=== PATIENT | male | born 1940 | race Caucasian/White ===

== ENCOUNTER → 2018-04-12 | Outpatient (CLI) | payer OTHER ==
[~2018-04-12] MED LIST: REGADENOSON 0.4 MG/5 ML SYRINGE IV ONE
--- NOTE | 2018-04-12 10:58 | EST ---
EXERCISE STRESS DATE OF SERVICE: 04/12/2018 AGE: 77 SEX: Male HT: 70" WT: 174 pounds PROTOCOL: Lexiscan Cardiolite STAGE: DURATION OF EXERCISE: HEART RATE REST: 72 BLOOD PRESSURE REST: 166/84 MAXIMUM HEART RATE ACHIEVED: 91 MAXIMUM BLOOD PRESSURE: 166/84 85% MPHR: 120 100% MPHR: 141 METS: INDICATIONS: Abnormal EKG CLINICAL INFORMATION: History of hypertension, dyslipidemia, and abnormal ECG. Baseline heart rate is 72 beats per minute. Baseline blood pressure 166/84 mmHg. Baseline 12-lead ECG shows sinus rhythm with normal AK, left anterior fascicular block and normal ST segments. Patient received Lexiscan infusion per protocol. There was no significant change in heart rate or blood pressure. No chest pain noted. No ECG abnormalities noted. No arrhythmias noted. Nuclear portion of the stress test will be reported separately. MMODL / IJN: [id number] /
--- NOTE | 2018-04-12 11:36 | NM ---
EXAMINATION TYPE: NM stress lexiscan cardiolite DATE OF EXAM: 04/12/2018 COMPARISON: NONE HISTORY: Abnormal EKG TECHNIQUE: After the intravenous administration of 9.84 mCi Tc 99m Sestamibi - Cardiolite resting SP ECT images acquired 45 minutes post injection. The patient received 0.4mg Lexiscan, 26.3 mCi Tc 99m Sestamibi - Stress images obtained [address] injection FINDINGS: Review of stress and rest SPECT images demonstrates decreased uptake along the inferior left ventricu lar wall on stress and rest images extending towards the apex, decreased uptake is noted inferolatera lly and inferoseptally on stress as compared to rest images. Gated analysis shows normal wall motion with an estimated left ventricular ejection fraction of 60 %. 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
== END ==
LOC: RADNMMAIN 07:40
DX: I44.4 Left anterior fascicular block (principal)
CPT/HCPCS: 93017; 78452; A9500; J2785

== ENCOUNTER → 2019-04-20 | Day surgery (SDC) | payer MEDICARE, OTHER ==
[2019-04-18 09:29] VITALS: BMI 25.1
[~2019-04-20] MED LIST changes: +DEXAMETHASONE SOD PHOSPHATE 10 MG/ML 1 ML VIAL IV ONE; +HEPARIN SODIUM,PORCINE 5,000 UNIT/ML 1 ML VIAL SQ ONE; +HYDROmorphone 0.5 MG/0.5 ML SYRINGE IVP PRN; +LIDOCAINE 1% 20 ML VIAL (10MG/ML) FOR IV START INTRADERMA ONE; +LIDOCAINE 1% 20 ML VIAL (10MG/ML) FOR IV START INTRADERMA PRN; +ONDANSETRON 4 MG/2 ML VIAL IVP ONE; -REGADENOSON 0.4 MG/5 ML SYRINGE IV ONE; +fentaNYL (PF) 50 MCG/ML 2 ML AMP IV PRN
[2019-04-20 06:48] VITALS: BP 147/83; PULSE 72; RESP 16; TEMP 97.4
[2019-04-20] MEDS: LACTATED RINGERS 1,000 ML IV SCH (07:00)
== END | disposition home or self-care (01) ==
LOC: OR 06:17
PROVIDERS: ATTEND Surgery
DX: K40.01 Bilateral inguinal hernia, with obstruction, without gangrene, recurrent (principal); Z53.09 Procedure and treatment not carried out because of other contraindication

== ENCOUNTER → 2019-04-28 | Outpatient (CLI) | payer MEDICARE ==
[2019-04-28 11:02] LABS: HCT 47.5 % (39.0-53.0); HGB 15.4 gm/dL (13.0-17.5); MCH 30.8 pg (25.0-35.0); MCHC 32.5 g/dL (31.0-37.0); Mean Platelet Volume 7.7; Platelet Count 167 k/uL (150-450)
== END | disposition home or self-care (01) ==
LOC: LABWHC1 10:43
PROVIDERS: ATTEND Internal Medicine Interventional Cardiology
DX: I48.3 Typical atrial flutter (principal)
CPT/HCPCS: 36415; 84443; 85027

== ENCOUNTER → 2019-05-12 | Outpatient (CLI) | payer MEDICARE ==
[2019-05-12 09:34] LABS: HCT 48.1 % (39.0-53.0); HGB 16.1 gm/dL (13.0-17.5); MCH 32.3 pg (25.0-35.0); MCHC 33.4 g/dL (31.0-37.0); MCV 96.7 fL (80.0-100.0); Mean Platelet Volume 7.9; Platelet Count 150 k/uL (150-450); RBC 4.98 m/uL (4.30-5.90); RDW 14.4 % (11.5-15.5); WBC 6.4 k/uL (3.8-10.6)
[2019-05-12 10:08] LABS: Potassium 4.5 mmol/L (3.5-5.1)
== END | disposition home or self-care (01) ==
LOC: LABPAT 08:22
PROVIDERS: ATTEND Internal Medicine Interventional Cardiology
DX: Z01.812 Encounter for preprocedural laboratory examination (principal); I48.1 Persistent atrial fibrillation
CPT/HCPCS: 36415; 80051; 82565; 84520; 85027

== ENCOUNTER → 2019-05-18 | Day surgery (SDC) | payer MEDICARE ==
[2019-05-13 10:06] VITALS: BMI 24.3
[~2019-05-18] MED LIST changes: +ALPRAZolam 0.25 MG TAB PO PRN; +ALPRAZolam 0.5 MG TAB PO PRN; +ASPIRIN 325 MG TAB PO STA; +ATORVASTATIN 10 MG TAB PO SCH; +ATORVASTATIN 80 MG TAB PO STA; +BENZOCAINE SPRAY 1 CAN MUCOUS MEM ONE; +BRIMONIDINE TARTRATE 0.2% DROPS 5 ML BTL BOTH EYES SCH; -DEXAMETHASONE SOD PHOSPHATE 10 MG/ML 1 ML VIAL IV ONE; +DORZOLAMIDE-TIMOLOL 2.23%/0.68 10ML BTL BOTH EYES SCH; +HEPARIN SODIUM 1,000 UN/ML (10ML VL) IV ONE; +HEPARIN SODIUM 1,000 UN/ML (10ML VL) ONE; -HEPARIN SODIUM,PORCINE 5,000 UNIT/ML 1 ML VIAL SQ ONE; -HYDROmorphone 0.5 MG/0.5 ML SYRINGE IVP PRN; +IOHEXOL 350 MG/ML (PER ML) 100ML BTL INJ ONE; -LIDOCAINE 1% 20 ML VIAL (10MG/ML) FOR IV START INTRADERMA ONE; -LIDOCAINE 1% 20 ML VIAL (10MG/ML) FOR IV START INTRADERMA PRN; +LIDOCAINE 1% INJ 10MG/ML (20 ML MDV) ONE; +LIDOCAINE 1% INJ 10MG/ML (20 ML MDV) SQ ONE; +LISINOPRIL 10 MG TAB PO SCH; +METOPROLOL TARTRATE 25 MG TAB PO SCH; +MIDAZOLAM PF (FBP) 2 MG/2 ML VIAL IV ONE; +MULTIVITAMINS, THERA 1 EACH TAB PO SCH; +NITROGLYCERIN SL TABS 0.4 MG TAB SUBLINGUAL PRN; -ONDANSETRON 4 MG/2 ML VIAL IVP ONE; +PANTOPRAZOLE 40 MG TABLET PO PRN; +RX INFO: IV CONTRAST WAS GIVEN 1 EACH MISC MISCELLANE PRN; +SODIUM CHLORIDE 0.9% 1,000 ML IV ONE; +SODIUM CHLORIDE 0.9% 1,000 ML IV SCH; +SODIUM CHLORIDE 0.9% 1,000 ML in EMPTY BAG 1 BAG IV ONE; +VERAPAMIL 2.5 MG/ML 2 ML AMP ONE; +VERAPAMIL SYRINGE (5 MG/10 ML) INTRAARTER ONE; +fentaNYL (PF) 50 MCG/ML 2 ML AMP IV ONE; -fentaNYL (PF) 50 MCG/ML 2 ML AMP IV PRN; +fentaNYL (PF) 50 MCG/ML 2 ML AMP ONE
[2019-05-18 09:50] VITALS: TEMP 98.3
--- NOTE | 2019-05-18 12:00 | ECHOT ---
TRANSESOPHAGEAL ECHOCARDIOGRAM INDICATION: Evaluation of mitral valve. PROCEDURE: After explaining the procedure to the patient, its risks and the complications, his blood pressure, heart rate, O2 saturation were monitored. The throat was sprayed with Cetacaine. He received 2 mg intravenous Versed, 50 mcg intravenous fentanyl. The probe was induced in the esophagus without difficulty. Images were obtained. Following that, the probe was removed. FINDINGS: Biatrial enlargement was noted. Left atrial appendage is normal. Left ventricular size is normal. The ejection fraction is estimated at 50%. The aortic valve revealed mild thickening of the aortic valve cusp with preserved opening. Mitral valve revealed mild thickening of the mitral valve leaflets. The tricuspid valve is normal. Descending thoracic aorta revealed mild atherosclerotic changes. No pericardial effusion was noted. Contrast bubble study revealed no shunting across the interatrial septum. Doppler pulse wave and color Doppler obtained revealed severe eccentric mitral regurgitation with severe tricuspid regurgitation and moderate aortic regurgitation. Estimated right ventricular systolic pressure was 70 mmHg consistent with severe pulmonary hypertension. There was no shunting by color Doppler study. CONCLUSION: 1. Biatrial enlargement. 2. Mild global hypokinesis. 3. Severe mitral and tricuspid regurgitation with severe pulmonary hypertension. 4. Moderate aortic regurgitation. 5. No shunting across the interatrial septum. MMODL / IJN: [id number] / MTDMary
--- NOTE | 2019-05-18 13:21 | CC ---
CARDIAC CATHETERIZATION REPORT Mr. Ramon is an 78-year-old male who was noted to have atrial fibrillation as part of his preoperative evaluation for herniorrhaphy and subsequently was found to have mildly impaired left ventricular systolic function with severe mitral, moderate to severe tricuspid regurgitation. In view of that, recommendations were made regarding cardiac catheterization. The procedure as well as the risks and the complications were discussed with the patient who is in full understanding and agreement. PROCEDURE: Patient was brought to the custodial laborer in a fasting semi-sedated state after receiving fentanyl and Benadryl and achieving moderate conscious state. Using Xylocaine anesthesia in the Seldinger technique a 6-Trinidadian sheath was introduced in the right radial artery. Subsequently, the intravenous catheter in the right brachial area was exchanged to a 6-Trinidadian sheath over a wire. There was inability to advance the Erie- Chantel catheter in the superior vena cava. Subsequently that catheter was removed and selective right and left coronary angiography performed using 5-Trinidadian, 3.5 bend right and left Stefan catheter. Multiple views of the coronary artery including hemiaxial views were obtained. Following that, 5-Trinidadian tight pigtail introduced in the left ventricle and a 30-degree MELENDREZ view of the left ventricle was obtained. Following that, catheter and sheaths were removed. Hemostasis was obtained with deployment of a TR band. There was no immediate complication. The patient is returned to his room in stable condition. Of note, the patient received 5000 units of intravenous heparin as well as intra-arterial verapamil. FINDINGS: LEFT MAIN: This is a large-sized vessel bifurcating in left circumflex, left anterior descending artery. Left main coronary artery has no evidence of high-grade stenosis. LEFT ANTERIOR DESCENDING ARTERY: This is a large-sized vessel reaching to the apex with a wraparound apex segment giving rise to a very proximal diagonal branch. The left anterior descending artery in the mid segment has 20% plaque. The rest of the vessel has no high-grade stenosis. LEFT CIRCUMFLEX: This is a nondominant vessel, large in caliber giving rise to 2 obtuse marginal branches. The left circumflex as well as branches have no evidence of obstructive coronary artery disease. RIGHT CORONARY ARTERY: This is a dominant vessel bifurcating distally PDA posterolateral segment and branches. The right coronary artery as well as branches have no evidence of obstructive coronary artery disease. LEFT VENTRICULOGRAM: The left ventriculogram was performed in 30-degree MELENDREZ view and revealed normal left ventricular size. Ejection fraction is 50%. There was 4+ mitral regurgitation. HEMODYNAMICS: There was no gradient across the aortic valve. The left ventricular end-diastolic pressure was 14 to 16 mmHg. CONCLUSION: 1. Mild intimal disease involving the LAD. 2. Normal left ventricular size with mild global hypokinesis and 4+ mitral regurgitation. RECOMMENDATION: In view of finding anatomy, I recommend proceeding with evaluation for mitral valve and tricuspid valve repair and possible aortic valve replacement. Those findings and recommendation were discussed with the patient and his family who are in full understanding and agreement. Duration of procedure is 29 minutes. MMODL / IJN: [id number] /
--- NOTE | 2019-05-18 13:36 | P.GSCN ---
History of Present Illness Consult date: 05/18/19 Reason for Consult: Valvular insufficiency, surgical recommendations Requesting physician: Sherine Mijares History of present illness: This is an 78-year-old patient who follows in an outpatient basis with the [facility] clinic. He is a previous medical history of persistent atrial fibrillation on chronic Eliquis for anticoagulation, hypertension, hyperlipidemia, and bladder cancer with surgical resection. He was in need of hernia surgery and went to see Dr. Mijares for cardiac clearance. He denies any shortness of breath, chest pain, or any other symptoms. A transthoracic echocardiogram was performed in March demonstrating ejection fraction 45%, severe mitral regurgitation, moderate to severe tricuspid regurgitation, moderate aortic insufficiency, and moderate pulmonary regurgitation. In addition, he had a Lexiscan stress test April 2019 which showed a fixed inferoapical defect. He was recommended to undergo cardiac catheterization and transesophageal echocardiogram which were completed today by Dr. Mijares. The heart catheterization demonstrated no significant obstructive coronary artery disease. Transesophageal echocardiogram demonstrated mild global hypokinesis with ejection fraction 50%, mild thickening of the mitral valve leaflets with severe eccentric mitral regurgitation, moderate aortic regurgitation, and severe tricuspid regurgitation with severe pulmonary hypertension. Dr. Warner from cardiothoracic surgery was consulted regarding surgical recommendations. Review of Systems Review of systems was completed and was negative. Past Medical History Past Medical History: Atrial Fibrillation, Cancer, GERD/Reflux, Hyperlipidemia, Hypertension Additional Past Medical History / Comment(s): GLAUCOMA, BLADDER CANCER , MELONOMA SKIN CANCER History of Any Multi-Drug Resistant Organisms: None Reported Additional Past Surgical History / Comment(s): BLADDER SURGERY , LESIONS REMOVED FOR SKIN CANCER Past Anesthesia/Blood Transfusion Reactions: No Reported Reaction Past Psychological History: No Psychological Hx Reported Smoking Status: Never smoker Past Alcohol Use History: Rare Past Drug Use History: None Reported - Past Family History Brother(s) Family Medical History: Cancer Mother Family Medical History: Cancer Medications and Allergies Home Medications Medication Instructions Recorded Confirmed Type Brimonidine Tartrate [Alphagan P 1 drops BOTH EYES BID 04/18/19 05/18/19 History 0.2% Ophth Soln] Dorzolamide-Timol 2.23%/0.68% 1 drop BOTH EYES BID 04/18/19 05/18/19 History [Cosopt] Lisinopril [Zestril] 10 mg PO DAILY 04/18/19 05/18/19 History Metoprolol Tartrate [Lopressor] 25 mg PO BID 04/18/19 05/18/19 History Multivitamins, Thera [Multivitamin 1 tab PO DAILY 04/18/19 05/18/19 History (formulary)] Omeprazole [PriLOSEC] 20 mg PO DAILY PRN 04/18/19 05/18/19 History Simvastatin [Zocor] 20 mg PO MOWEFR 04/18/19 05/18/19 History Apixaban [Eliquis] 5 mg PO BID 05/13/19 05/18/19 History Allergies Allergy/AdvReac Type Severity Reaction Status Date / Time No Known Allergies Allergy Verified 05/13/19 09:59 Surgical - Exam Vital Signs Temp Pulse Resp BP Pulse Ox 98.3 F 72 18 178/92 100 05/18/19 09:40 05/18/19 09:40 05/18/19 09:40 05/18/19 09:40 05/18/19 09:40 - General well developed, well nourished, no distress, no pain - Eyes normal ocular movement - ENT no hearing loss - Neck no masses, no bruits, trachea midline - Respiratory Lungs sounds clear bilaterally. Respirations even, nonlabored. Currently on room air with oxygen saturation 96%. No chest wall deformities. No clubbing or cyanosis present. - Cardiovascular S1, S2 present. Regular rate and rhythm, sinus rhythm on telemetry. Palpable peripheral pulses bilaterally. No edema present. No calf pain or tenderness noted. - Abdomen Abdomen: soft, non tender, bowel sounds - Genitourinary Deferred - Rectum Deferred - Integumentary Right radial artery heart catheterization site well approximated, T-band in place. no rash, no growths - Neurologic normal coordination, normal sensation - Musculoskeletal normal posture - Psychiatric oriented to time, oriented to person, oriented to place, speech is normal, memory intact Results - Imaging EKG: image reviewed Assessment and Plan Assessment: 1. Severe eccentric mitral regurgitation 2. Moderate aortic regurgitation 3. Severe tricuspid regurgitation with severe pulmonary hypertension 4. Persistent atrial fibrillation on chronic Eliquis for anticoagulation, currently in sinus rhythm 5. History of hypertension 6. History of hyperlipidemia 7. History of bladder cancer with surgical resection Plan: The patient was seen and examined at the bedside in the extended stay unit. Chart/diagnostics were reviewed including heart catheterization films and transesophageal echocardiogram films. The case will be discussed in detail with Dr. Warner and he will see the patient before she is discharged from the hospital. The patient will need dental clearance before valve surgery, this was discussed with the patient and his . We will obtain preoperative testing and an outpatient basis and calculated STS risk score to be discussed with the patient and his . Further recommendations to follow. Thank you Dr. Mijares for this consult. We look forward to working with you in the care of your patient. Time with Patient: Greater than 30
[2019-05-18 14:49] VITALS: RESP 18
[2019-05-18 15:34] VITALS: BP 140/75; PULSE 67
== END | disposition home or self-care (01) ==
LOC: CATHCVL 08:58
PROVIDERS: ATTEND Internal Medicine Interventional Cardiology
DX: I08.3 Combined rheumatic disorders of mitral, aortic and tricuspid valves (principal); I70.0 Atherosclerosis of aorta; I27.20 Pulmonary hypertension, unspecified; I25.10 Atherosclerotic heart disease of native coronary artery without angina pectoris; I10 Essential (primary) hypertension; I48.1 Persistent atrial fibrillation; E78.2 Mixed hyperlipidemia; Z79.01 Long term (current) use of anticoagulants; Z79.899 Other long term (current) drug therapy; E78.00 Pure hypercholesterolemia, unspecified
CPT/HCPCS: 93312; 93320; 93325; 93458; C1751; Q9967; J2001; J3010; J1644; J2250

== ENCOUNTER 2019-06-29 09:33 | Day surgery (SDC) | payer MEDICARE ==
[2019-06-28 08:52] VITALS: BMI 25.9
[~2019-06-29 09:33] MED LIST changes: -ALPRAZolam 0.25 MG TAB PO PRN; -ALPRAZolam 0.5 MG TAB PO PRN; -ASPIRIN 325 MG TAB PO STA; -ATORVASTATIN 10 MG TAB PO SCH; -ATORVASTATIN 80 MG TAB PO STA; -BENZOCAINE SPRAY 1 CAN MUCOUS MEM ONE; -BRIMONIDINE TARTRATE 0.2% DROPS 5 ML BTL BOTH EYES SCH; +DEXAMETHASONE SOD PHOSPHATE 10 MG/ML 1 ML VIAL IV ONE; -DORZOLAMIDE-TIMOLOL 2.23%/0.68 10ML BTL BOTH EYES SCH; -HEPARIN SODIUM 1,000 UN/ML (10ML VL) IV ONE; -HEPARIN SODIUM 1,000 UN/ML (10ML VL) ONE; +HEPARIN SODIUM,PORCINE 5,000 UNIT/ML 1 ML VIAL SQ ONE; -IOHEXOL 350 MG/ML (PER ML) 100ML BTL INJ ONE; +LIDOCAINE 1% 20 ML VIAL (10MG/ML) FOR IV START INTRADERMA PRN; -LIDOCAINE 1% INJ 10MG/ML (20 ML MDV) ONE; -LIDOCAINE 1% INJ 10MG/ML (20 ML MDV) SQ ONE; -LISINOPRIL 10 MG TAB PO SCH; -METOPROLOL TARTRATE 25 MG TAB PO SCH; +MIDAZOLAM 2 MG/2 ML VIAL IV PRN; -MIDAZOLAM PF (FBP) 2 MG/2 ML VIAL IV ONE; -MULTIVITAMINS, THERA 1 EACH TAB PO SCH; -NITROGLYCERIN SL TABS 0.4 MG TAB SUBLINGUAL PRN; -PANTOPRAZOLE 40 MG TABLET PO PRN; -RX INFO: IV CONTRAST WAS GIVEN 1 EACH MISC MISCELLANE PRN; -SODIUM CHLORIDE 0.9% 1,000 ML IV ONE; -SODIUM CHLORIDE 0.9% 1,000 ML IV SCH; -SODIUM CHLORIDE 0.9% 1,000 ML in EMPTY BAG 1 BAG IV ONE; -VERAPAMIL 2.5 MG/ML 2 ML AMP ONE; -VERAPAMIL SYRINGE (5 MG/10 ML) INTRAARTER ONE; -fentaNYL (PF) 50 MCG/ML 2 ML AMP IV ONE; +fentaNYL (PF) 50 MCG/ML 2 ML AMP IV PRN; -fentaNYL (PF) 50 MCG/ML 2 ML AMP ONE
[2019-06-29] MEDS: LACTATED RINGERS 1,000 ML IV SCH ×2 (11:03→11:08)
[2019-06-29] MEDS ORDERED: ONDANSETRON 4 MG/2 ML VIAL IVP ONE (11:11)
[2019-06-29] MEDS ORDERED: fentaNYL (PF) 50 MCG/ML 2 ML AMP IV ONE (11:21)
--- NOTE | 2019-06-29 11:21 | P.GSHP ---
History of Present Illness H&P Date: 06/29/19 Chief Complaint: Bilaterally inguinal hernia This an 78-year-old male with history of bilateral inguinal hernias. Patient resents today for laparoscopic robotic-assisted repair. Past Medical History Past Medical History: Atrial Fibrillation, Cancer, GERD/Reflux, Hyperlipidemia, Hypertension Additional Past Medical History / Comment(s): GLAUCOMA, BLADDER CANCER , MELONOMA SKIN CANCER , states has a leaky valve- work-up done per Dr. Mijares in the last month. History of Any Multi-Drug Resistant Organisms: None Reported Past Surgical History: Heart Catheterization Additional Past Surgical History / Comment(s): BLADDER SURGERY , LESIONS REMOVED FOR SKIN CANCER Past Anesthesia/Blood Transfusion Reactions: No Reported Reaction Smoking Status: Never smoker - Past Family History Brother(s) Family Medical History: Cancer Mother Family Medical History: Cancer Medications and Allergies Home Medications Medication Instructions Recorded Confirmed Type Brimonidine Tartrate [Alphagan P 1 drops BOTH EYES BID 04/18/19 06/28/19 History 0.2% Ophth Soln] Dorzolamide-Timol 2.23%/0.68% 1 drop BOTH EYES BID 04/18/19 06/28/19 History [Cosopt] Lisinopril [Zestril] 10 mg PO DAILY 04/18/19 06/28/19 History Metoprolol Tartrate [Lopressor] 25 mg PO BID 04/18/19 06/28/19 History Multivitamins, Thera [Multivitamin 1 tab PO DAILY 04/18/19 06/28/19 History (formulary)] Omeprazole [PriLOSEC] 20 mg PO DAILY PRN 04/18/19 06/29/19 History Simvastatin [Zocor] 20 mg PO MOWEFR 04/18/19 06/28/19 History Apixaban [Eliquis] 5 mg PO BID 05/13/19 06/29/19 History Allergies Allergy/AdvReac Type Severity Reaction Status Date / Time No Known Allergies Allergy Verified 06/29/19 11:08 Surgical - Exam Vital Signs Temp Pulse Resp BP Pulse Ox 97.6 F 59 L 18 146/70 98 06/29/19 10:30 06/29/19 10:30 06/29/19 10:30 06/29/19 10:30 06/29/19 10:30 - General well developed, well nourished, no distress - Eyes PERRL - ENT normal pinna, normal nares - Neck no masses - Respiratory normal expansion - Cardiovascular Rhythm: regular - Abdomen Abdomen: soft, non tender Assessment and Plan Assessment: Bilateral inguinal hernias. We'll perform laparoscopic robotic-assisted repair.
[2019-06-29] MEDS ORDERED: KETAMINE 10 MG/ML 20 ML VIAL ONE (11:44)
[2019-06-29] MEDS ORDERED: fentaNYL (PF) 50 MCG/ML 2 ML AMP ONE (11:44)
[2019-06-29] MEDS ORDERED: ROCURONIUM BROMIDE 10 MG/ML 10 ML VIAL IV ONE (11:44)
[2019-06-29] MEDS ORDERED: MIDAZOLAM 2 MG/2 ML VIAL ONE (11:44)
[2019-06-29] MEDS ORDERED: PROPOFOL 10 MG/ML 20 ML VIAL IV ONE (11:44)
[2019-06-29] MEDS ORDERED: GLYCOPYRROLATE 0.2 MG/ML 2 ML VIAL ONE (11:44)
[2019-06-29] MEDS ORDERED: ROPIVACAINE 5 MG/ML 30 ML VIAL ONE (11:44)
[2019-06-29] MEDS ORDERED: SUCCINYLCHOLINE CHLORIDE 100 MG/5 ML SYR IV ONE (11:44)
[2019-06-29] MEDS ORDERED: KETOROLAC 30 MG/ML 1 ML VIAL ONE (11:44)
[2019-06-29] MEDS ORDERED: NEOSTIGMINE 1 MG/ML 10 ML VIAL ONE (11:44)
[2019-06-29] MEDS ORDERED: LIDOCAINE 2%-EPI 1:100,000 20 ML VIAL ONE (11:44)
[2019-06-29] MEDS ORDERED: ePHEDrine SULFATE/0.9% NACL/PF 50 MG/5 ML SYRINGE IV ONE (11:44)
[2019-06-29] MEDS ORDERED: LIDOCAINE 1% INJ 10MG/ML (20 ML MDV) ONE (11:44)
--- NOTE | 2019-06-29 11:48 | P.ANPRN ---
Procedure Note - Anesthesia - Nerve Block Performed Bilateral Transversus Abdominis Single Time Out Performed: Yes Date of Procedure: 06/29/19 Location of Patient Procedure: PreOp Indication: Acute Post-Operative Pain Specifically requested for management of pain by DrLev: Mahamed Hwang Sedation Type: Sedate with meaningful contact maintained Preparation: Sterile Prep Position: Supine Catheter: None Needle Types: Pajunk Needle Gauge: 20 Ultrasound used to visualize needle placement: Yes Ultrasound used to observe medication spread: Yes Injectate: Other (see comment) (0.25% ropivacaine/0.5% lidocaine 25 mL per side) Adjunct: Epinephrine (see comment for dilution ratio) (1:200,000) Blood Aspirated: No Pain Paresthesia on Injection Noted: No Resistance on Injection: Normal Image Stored and Saved: Yes Events: Uneventful and Well Tolerated
[2019-06-29] MEDS ORDERED: BUPIVACAINE (PF) 0.5% 30 ML VIAL SQ ONE (12:31)
[2019-06-29 13:17] VITALS: TEMP 96.8
--- NOTE | 2019-06-29 13:37 | P.OP ---
Date of Procedure: 06/29/19 Preoperative Diagnosis: Bilateral inguinal hernia Postoperative Diagnosis: Bilateral inguinal hernia Procedure(s) Performed: Laparoscopic robotic-assisted repair of bilateral inguinal hernia Anesthesia: ALKA Surgeon: Mahamed Hwang Estimated Blood Loss (ml): 5 Pathology: none sent Condition: stable Disposition: PACU Description of Procedure: The patient's placed on the operating table in the supine position. The patient received general anesthesia. The patient's abdomen was prepped and draped in usual sterile fashion. The skin was anesthetized 1% local Xylocaine at the incision sites. Using an 11 blade a skin incision was made at the umbilicus. The fascia was grasped with a Kristin and then the peritoneal cavity was entered with the Veress needle. Position of the Veress needle was confirmed with a positive drop test. After adequate insufflation a 5 mm trocar was placed into the peritoneal cavity. The Laparoscope was placed the peritoneal cavity. And a robotic 8 mm trocar was placed in the right lateral position and then another [address] aced in the left lateral position. The original 5 mm trocar was exchanged for a 12 mm trocar. The patient was placed in reverse Trendelenburg and then the patient was docked to the robot. Next the peritoneum over top of the right inguinal hernia was incised and then using blunt and sharp dissection and electrocautery the hernia sac was dissected free from the floor of the inguinal canal. The hernia sac was completely reduced into the peritoneal cavity. And then using the Pro textile colorist dyer mesh the hernia was repaired. The peritoneum was then sutured with 20V lock suture. Next the peritoneum over top of the left inguinal hernia was incised and then using blunt and sharp dissection and electrocautery the hernia sac was dissected free from the floor of the inguinal canal. The hernia sac was completely reduced into the peritoneal cavity. And then using the Pro textile colorist dyer mesh the hernia was repaired. The peritoneum was then sutured with 20V lock suture. The patient was then undocked the robot. The needle was withdrawn from the peritoneal cavity. The umbilical trocar site was closed with 0 Ethibond suture. The skin was closed interrupted 3-0 Monocryl suture. Dermabond dressing was applied. Patient was sent to recovery in stable condition.
[2019-06-29] MEDS ORDERED: hydrALAZINE HCL 20 MG/ML 1 ML VIAL IVP ONE (13:45)
[2019-06-29] MEDS ORDERED: HYDROcodone/APAP 5-325MG 1 EACH TAB PO ONE (15:44)
[2019-06-29 15:52] VITALS: BP 142/81; PULSE 75; RESP 16
== END 2019-06-29 16:01 | disposition home or self-care (01) ==
LOC: OR 09:33
PROVIDERS: ATTEND Surgery
DX: K40.20 Bilateral inguinal hernia, without obstruction or gangrene, not specified as recurrent (principal); E78.5 Hyperlipidemia, unspecified; I10 Essential (primary) hypertension; I48.91 Unspecified atrial fibrillation; K21.9 Gastro-esophageal reflux disease without esophagitis; Z79.01 Long term (current) use of anticoagulants; Z85.828 Personal history of other malignant neoplasm of skin; Z85.51 Personal history of malignant neoplasm of bladder; Z80.9 Family history of malignant neoplasm, unspecified; Z79.899 Other long term (current) drug therapy; H40.9 Unspecified glaucoma
CPT/HCPCS: 64488; 49650; C1781; J2250; J0360; J1644; J1100; J2710; J0690; J2405; J2001; J3010; J1885; J2795; J0330; J2704

== ENCOUNTER → 2020-03-27 | Outpatient (CLI) | payer MEDICARE ==
--- NOTE | 2020-03-27 16:50 | CT ---
EXAMINATION TYPE: CT urogram wo/w con DATE OF EXAM: 03/27/2020 COMPARISON: None HISTORY: 79-year-old male Gross hematuria and history of bladder cancer. TECHNIQUE: Contiguous axial scanning of the abdomen and pelvis performed without and with IV Contrast , patient injected with 80ml mL of Isovue 370. Delayed images through the kidneys and bladder were ob tained. Coronal/sagittal reconstructions performed. Reconstructions generated on a dedicated [employer] ent workstation. CT DLP: 2447 mGycm Automated exposure control for dose reduction was used. FINDINGS: Heart normal size without pericardial effusion. Breathing motion artifact at the lower lungs with mil d dependent atelectasis. No pleural effusion. Small hiatal hernia. No focal liver lesion or biliary ductal dilatation. Portal venous system is patent. Gallbladder, adrenal glands, spleen, and pancreas appear within normal limits. There are 2 renal cysts on the left measuring 3.4 and 1.1 cm. Smaller 7 mm indeterminate lesion poste rior mid left kidney. This is too small for accurate CT characterization but also likely represents a cyst. 1.2 cm cortical cyst lateral right kidney. No nephrolithiasis or hydronephrosis. Symmetric uptake and excretion of contrast from both kidneys. N o definite suspicious renal lesion. No suspicious filling defect in the renal collecting systems. Ext rarenal pelvis on the left. No suspicious soft tissue thickening or filling defect along the course of either ureter. No dilated small bowel, free fluid, or free air. No mesenteric or retroperitoneal lymphadenopathy. Mild stool burden. Normal appendix. Mild proximal sigmoid diverticulosis. No pericolonic inflammatory change. Moderate circumferential bladder wall thickening. There is a dependent 1.1 cm bladder calculus along the posterior midline. Heterogeneous and enlarged prostate gland measuring explained 6.5 x 6.6 cm. No abnormal fluid collection pelvis or pelvic lymphadenopathy. Patulous right inguinal canal. Bones: Moderate multilevel degenerative disc disease. Trace grade 1 retrolisthesis at L4-L5 from hype rtrophic facet arthropathy. IMPRESSION: 1. MARKED PROSTATOMEGALY AT 6.6 CM WIDE. 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 CORRELATE TO EXCLUDE CYSTITIS. 2. A DEPENDENT 1.1 CM BLADDER CALCULUS ALONG THE POSTERIOR MIDLINE. 3. BILATERAL RENAL CYSTS MEASURING UP TO 3.4 CM ON THE LEFT. NO RENAL CALCULI OR HYDRONEPHROSIS. 4. NO SUSPICIOUS FILLING DEFECT WITHIN THE RENAL COLLECTING SYSTEMS OR ALONG THE COURSE OF THE URETER S. 5. MILD PROXIMAL SIGMOID DIVERTICULOSIS. SMALL HIATAL HERNIA.
== END | disposition home or self-care (01) ==
LOC: RADCTMAIN 11:55
PROVIDERS: ATTEND Urology
DX: N40.0 Benign prostatic hyperplasia without lower urinary tract symptoms (principal); N32.89 Other specified disorders of bladder; N21.0 Calculus in bladder; N28.1 Cyst of kidney, acquired; C67.9 Malignant neoplasm of bladder, unspecified
CPT/HCPCS: 82565; 84520; 74178; 36415; 74400; Q9967

== ENCOUNTER → 2020-06-28 | Outpatient (CLI) | payer OTHER ==
--- NOTE | 2020-06-28 11:25 | ECHOF ---
Referral Reason:I34.9 Mitral valve Disorder MEASUREMENTS -------- HEIGHT: 172.7 cm WEIGHT: 78.5 kg BP: RVIDd: 4.3 cm (< 3.3) IVSd: 1.3 cm (0.6 - 1.1) LVIDd: 4.0 cm (3.9 - 5.3) LVPWd: 1.6 cm (0.6 - 1.1) IVSs: 1.7 cm LVIDs: 2.8 cm LVPWs: 2.2 cm LAESV Index (A-L): 51.03 ml/m Ao Diam: 3.4 cm (2.0 - 3.7) AV Cusp: 2.0 cm (1.5 - 2.6) MV EXCURSION: 23.640 mm (> 18.000) MV EF SLOPE: 164 mm/s (70 - 150) EPSS: 0.7 cm AR PHT: 654 ms RAP: 5.00 mmHg RVSP: 51.30 mmHg FINDINGS -------- This was a technically adequate study. The left ventricular size is normal. There is mild concentric left ventricular hypertrophy. Overa ll left ventricular systolic function is low-normal with, an EF between 50 - 55 %. The right ventricle is moderately enlarged. LA is severely dilated >40 ml/m2 The right atrium is moderately enlarged. Interatrial and interventricular septum intact. The aortic valve is trileaflet and appears structurally normal. There is mild aortic regurgitation. There is no evidence of aortic stenosis. Uhoivzbr-mi-snkome mitral regurgitation is present. Moderate to severe tricuspid regurgitation present. There is severe pulmonary hypertension. The r ight ventricular systolic pressure, as measured by Doppler, is 51.30mmHg. There is no pulmonic regurgitation present. The aortic root size is normal. The inferior vena cava is mildly dilated. There is no pericardial effusion. CONCLUSIONS -------- 1. The left ventricular size is normal. 2. There is mild concentric left ventricular hypertrophy. 3. Overall left ventricular systolic function is low-normal with, an EF between 50 - 55 %. 4. The right ventricle is moderately enlarged. 5. LA is severely dilated >40 ml/m2 6. The right atrium is moderately enlarged. 7. There is mild aortic regurgitation. 8. Vxoynglc-lv-idjcdi mitral regurgitation is present. 9. Moderate to severe tricuspid regurgitation present. 10. There is severe pulmonary hypertension. 11. The right ventricular systolic pressure, as measured by Doppler, is 51.30mmHg. 12. The inferior vena cava is mildly dilated. MEDICAL SECRETARY TEACHER: Irais Hall RDCS
== END | disposition home or self-care (01) ==
LOC: RADECHMAIN 10:13
DX: I27.20 Pulmonary hypertension, unspecified (principal); I08.3 Combined rheumatic disorders of mitral, aortic and tricuspid valves
CPT/HCPCS: 93306

== ENCOUNTER → 2022-01-29 | Day surgery (SDC) | payer MEDICARE, OTHER ==
[2022-01-27 15:42] VITALS: BMI 25.9
[~2022-01-29] MED LIST changes: +ACETAMINOPHEN TAB 500 MG TAB PO PRN; +BUPIVACAIN-EPI 0.25%-1:200,000 30 ML VIAL SQ ONE; -DEXAMETHASONE SOD PHOSPHATE 10 MG/ML 1 ML VIAL IV ONE; +DEXAMETHASONE SOD PHOSPHATE 4 MG/ML 1 ML VIAL IVP ONE; +GLYCOPYRROLATE 0.2 MG/ML 2 ML VIAL ONE; -HEPARIN SODIUM,PORCINE 5,000 UNIT/ML 1 ML VIAL SQ ONE; +HEPARIN SODIUM,PORCINE/PF 5,000 UNIT/0.5 ML SYRINGE SQ PRN; +HYDROmorphone 0.5 MG/0.5 ML SYRINGE IVP ONE; +KETOROLAC 15 MG/ML 1 ML VIAL ONE; +LACTATED RINGERS 1,000 ML IV ONE; -LIDOCAINE 1% 20 ML VIAL (10MG/ML) FOR IV START INTRADERMA PRN; +LIDOCAINE 2% INJ 20 MG/ML (2 ML VIAL) ONE; -MIDAZOLAM 2 MG/2 ML VIAL IV PRN; +NEOSTIGMINE 1 MG/ML 10 ML VIAL ONE; +ONDANSETRON 4 MG/2 ML VIAL ONE; +PHENYLEPHRINE-0.9% NACL SYG 1,000 MCG/10 ML SYRINGE ONE; +PROPOFOL 10 MG/ML 20 ML VIAL IV ONE; +ROCURONIUM 10 MG/ML (5 ML VIAL) IV ONE; +SUCCINYLCHOLINE CHLORIDE 100 MG/5 ML SYR IV ONE; -fentaNYL (PF) 50 MCG/ML 2 ML AMP IV PRN; +fentaNYL (PF) 50 MCG/ML 2 ML AMP ONE
[2022-01-29 11:04] VITALS: RESP 16
--- NOTE | 2022-01-29 11:14 | P.GSHP ---
History of Present Illness H&P Date: 01/29/22 Chief Complaint: Recurrent right inguinal hernia C3 male developed a recurrent right inguinal hernia. The hernia is incarcerated. He presents today for open repair Past Medical History Past Medical History: Atrial Fibrillation, Coronary Artery Disease (CAD), Cancer, Eye Disorder, GERD/Reflux, Hyperlipidemia, Hypertension, Mitral Valve Prolapse (MVP), Seizure Disorder Additional Past Medical History / Comment(s): Glaucoma, Hx Bladder cancer, Melanoma skin cancer, states has a leaky valve. Seizures years ago, last 2000 or prior. History of Any Multi-Drug Resistant Organisms: None Reported Past Surgical History: Heart Catheterization, Hernia Repair Additional Past Surgical History / Comment(s): BLADDER SURGERY, LESIONS REMOVED FOR SKIN CANCER. Bilat ing hernias. Past Anesthesia/Blood Transfusion Reactions: No Reported Reaction Smoking Status: Never smoker - Past Family History Brother(s) Family Medical History: Cancer Mother Family Medical History: Cancer Medications and Allergies Home Medications Medication Instructions Recorded Confirmed Type Brimonidine Tartrate [Alphagan P 1 drops BOTH EYES BID 04/18/19 01/29/22 History 0.2% Ophth Soln] Dorzolamide-Timol 2.23%/0.68% 1 drop BOTH EYES BID 04/18/19 01/29/22 History [Cosopt] Metoprolol Tartrate [Lopressor] 25 mg PO BID 04/18/19 01/29/22 History Multivitamins, Thera [Multivitamin 1 tab PO DAILY 04/18/19 01/29/22 History (formulary)] Omeprazole [PriLOSEC] 20 mg PO DAILY PRN 04/18/19 01/29/22 History Simvastatin [Zocor] 10 mg PO MOWEFR 04/18/19 01/29/22 History lisinopriL [Zestril] 10 mg PO DAILY 04/18/19 01/29/22 History Apixaban [Eliquis] 5 mg PO BID 05/13/19 01/29/22 History Allergies Allergy/AdvReac Type Severity Reaction Status Date / Time No Known Allergies Allergy Verified 01/29/22 10:35 Surgical - Exam Vital Signs Temp Pulse Resp BP Pulse Ox 96.5 F L 80 16 163/96 98 01/29/22 10:30 01/29/22 10:30 01/29/22 10:30 01/29/22 10:30 01/29/22 10:30 - General well developed, well nourished, no distress - Eyes PERRL - ENT normal pinna - Neck no masses - Respiratory normal expansion - Cardiovascular Rhythm: regular - Abdomen Recurrent right inguinal hernia Abdomen: soft, non tender Assessment and Plan Assessment: Right inguinal hernia. We'll perform open repair
--- NOTE | 2022-01-29 12:36 | P.OP ---
Date of Procedure: 01/29/22 Preoperative Diagnosis: Recurrent right inguinal hernia Postoperative Diagnosis: Recurrent right inguinal hernia Procedure(s) Performed: Open repair of recurrent right inguinal hernia with Prolene hernia mesh system plug Anesthesia: WILLIAMSA Surgeon: Mahamed Hwang Estimated Blood Loss (ml): 5 Pathology: none sent Condition: stable Disposition: PACU Description of Procedure: DESCRIPTION OF PROCEDURE: The patient was placed in the supine position after receiving adequate anesthesia. Patients groin was prepped and draped in the usual sterile fashion. A standard hernia incision was made and the subcutaneous tissues were divided with electrocautery. The fascia of the external oblique was exposed. A iqra the fascia was made with #15 blade. The fascia was then opened with pair of Metzenbaum scissors. A Weitlaner retractor was placed in the wound and the cord structures were grasped and dissected free from the inguinal canal. A rubber Rich[place] drain was placed around the cord structures. The hernial sac was seen on the anterior-medial portion of the cord and this was dissected free from the cord. The hernia sac was then invaginated to the peritoneal cavity. Using blunt finger dissection, the preperitoneal space was dissected and then the Prolene hernial mesh plug was placed into the prepared space. The inferior leaf was expanded. The superior leaf was secured to the pubic tubercle using 2-0 Prolene suture. The lateral portion of the superior leaf was incised and cords tied and secured to the transversalis fascia using 2-0 Prolene suture. Fascia of the external oblique was then closed using #0 Vicryl suture. The Taisha drain was removed. The Scarpas fascia was then closed with 3-0 Vicryl suture and skin was closed with olesya. The patient tolerated the procedure well.
[2022-01-29 12:37] VITALS: TEMP 97.4
[2022-01-29 13:43] VITALS: PULSE 70
[2022-01-29 14:08] VITALS: BP 157/79
== END | disposition home or self-care (01) ==
LOC: OR 09:34
PROVIDERS: ATTEND Surgery
DX: K40.91 Unilateral inguinal hernia, without obstruction or gangrene, recurrent (principal); I48.91 Unspecified atrial fibrillation; K21.9 Gastro-esophageal reflux disease without esophagitis; Z79.01 Long term (current) use of anticoagulants; I34.1 Nonrheumatic mitral (valve) prolapse; I25.10 Atherosclerotic heart disease of native coronary artery without angina pectoris; I10 Essential (primary) hypertension; H40.9 Unspecified glaucoma; G40.909 Epilepsy, unspecified, not intractable, without status epilepticus; E78.5 Hyperlipidemia, unspecified; Z85.51 Personal history of malignant neoplasm of bladder; Z85.820 Personal history of malignant melanoma of skin
CPT/HCPCS: 49520; C1781; J1100; J2710; J0690; J2405; J3010; J1885; J2370; J0330; J2704; J1170; J1644; J2001

== ENCOUNTER → 2023-08-29 | Outpatient (CLI) | payer MEDICARE ==
--- NOTE | 2023-08-29 09:39 | MR ---
EXAMINATION TYPE: MR lumbar spine wo con DATE OF EXAM: 08/29/2023 COMPARISON: None HISTORY: Spinal stenosis, low back pain CONTRAST: 0 mL intravenous Gadavist. TECHNIQUE: Multiplanar, multisequence images of the lumbar spine were acquired. FINDINGS: Cord terminates at the L1 level. Disc desiccation is present throughout the lumbar spine. Some narrowing of disc height is present L5-S1 with milder disc space narrowing present at L2-3 throu gh L4-5. Modic type degenerative changes at the L2-3 endplates may be present. L5-S1: No significant disc bulge or disc herniation. No spinal canal stenosis. No foraminal stenosi s. L4-L5: Mild disc bulges anterior thecal sac flattening. No AP spinal canal stenosis present. Right fa cet hypertrophy is present. No spinal canal stenosis. Moderate right foraminal stenosis is present. L3-L4: No significant disc bulge or disc herniation. No spinal canal stenosis. No foraminal stenosi s. Facet hypertrophy is present greater on the right with some mild posterior lateral segment positi on.. L2-L3: No significant disc bulge or disc herniation. No spinal canal stenosis. No foraminal stenosi s. L1-L2: No significant disc bulge or disc herniation. No spinal canal stenosis. No foraminal stenosi s. T12-L1: No significant disc bulge or disc herniation. No spinal canal stenosis. No foraminal stenos is. IMPRESSION: 1. Diffuse degenerative disc changes through the lumbar spine. 2. Mild disc bulging L4-5 with anterior thecal sac flattening. 3. Right L4-5 moderate foraminal narrowing
== END | disposition home or self-care (01) ==
LOC: RADMRIMAIN 07:43
PROVIDERS: ATTEND Neurological Surgery
DX: M48.061 Spinal stenosis, lumbar region without neurogenic claudication (principal); M47.816 Spondylosis without myelopathy or radiculopathy, lumbar region; M51.26 Other intervertebral disc displacement, lumbar region; M99.71 Connective tissue and disc stenosis of intervertebral foramina of cervical region
CPT/HCPCS: 72148

== ENCOUNTER → 2024-02-29 | Outpatient (CLI) | payer MEDICARE ==
--- NOTE | 2024-02-29 16:13 | MR ---
EXAMINATION TYPE: MR cervical spine wo con DATE OF EXAM: 02/29/2024 12:34 PM CLINICAL INDICATION:Male, 83 years old with history of M54.2 neck pain, Neck pain COMPARISON: 02/12/2024. TECHNIQUE: Multi planar, multi sequence imaging was performed utilizing: T1-weighted, T2-weighted, an d turbo inversion recovery imaging of the cervical spine. IV Contrast: cc (none if empty) FINDINGS: Alignment: The cervical vertebral bodies have preserved heights. Alignment is within normal limits gi anjana patient positioning. Bones: Multilevel disc space narrowing and osteophyte formation with facet and uncovertebral joint ar thropathy. Cord: The spinal cord is unremarkable with regards to their signal intensity and morphology. Discs: Intervertebral disc signal is maintained. C2-C3: No significant disc pathology. The spinal canal is patent. No neural foraminal stenosis. C3-C4: No significant disc pathology. The spinal canal is patent. Bilateral facet and uncovertebral joint arthropathy are present with mild to moderate bilateral neural foraminal stenosis. C4-C5: No significant disc pathology. The spinal canal is patent. Bilateral facet and uncovertebral joint arthropathy are present with mild to moderate right and mild left neural foraminal stenosis. C5-C6: No significant disc pathology. The spinal canal is patent. Bilateral facet and uncovertebral joint arthropathy are present with moderate right and [id number] left neural foraminal stenosis . C6-C7: No significant disc pathology. The spinal canal is patent. Bilateral facet and uncovertebral joint arthropathy are present with moderate bilateral neural foraminal stenosis. C7-T1: No significant disc pathology. The spinal canal is patent. No neural foraminal stenosis. Other: None. IMPRESSION: 1. No evidence for disc herniation or significant spinal canal stenosis. 2. 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 Multilevel moderate neural fora regina stenosis.
== END | disposition home or self-care (01) ==
LOC: RADMRIMAIN 10:50
PROVIDERS: ATTEND Orthopaedic Surgery
DX: M47.812 Spondylosis without myelopathy or radiculopathy, cervical region (principal); M50.30 Other cervical disc degeneration, unspecified cervical region; M99.73 Connective tissue and disc stenosis of intervertebral foramina of lumbar region; G95.9 Disease of spinal cord, unspecified
CPT/HCPCS: 72141